=== PATIENT | male | born 1975 | race Caucasian/White ===

== ENCOUNTER 2020-04-15 11:27 | Emergency (ER) | payer OTHER ==
[~2020-04-15] VITALS: Ht 182.9 cm; Wt 83.9 kg
[2020-04-15] MEDS ORDERED: NEXIUM20 M1 PO (11:40)
[2020-04-15] MEDS ORDERED: CIPROFLOXIN HC2.5 M1 OPHTHALMIC (11:57)
[2020-04-15 12:18] VITALS: BP 113/69
== END 2020-04-15 12:18 | disposition home or self-care (01) ==
LOC: M.ERS 11:27
DX: S05.01XA Injury of conjunctiva and corneal abrasion without foreign body, right eye, initial encounter (principal); Z90.49 Acquired absence of other specified parts of digestive tract; X58.XXXA Exposure to other specified factors, initial encounter; Y93.89 Activity, other specified; Y92.89 Other specified places as the place of occurrence of the external cause; Y99.8 Other external cause status